=== PATIENT | female | born 1990 | race Caucasian/White ===

== ENCOUNTER 2022-03-05 16:07 | Outpatient (CLI) | payer OTHER, SELFPAY ==
[2022-03-05 17:11] LABS: Basophils Percent Auto 0.3 % (0.2-1.2); Eosinophils Absolute Auto 0.1 K/mm3 (0-0.3); Eosinophils Percent Auto 0.6 % (0-4.4); Hematocrit 37.1 % (37.0-47.0); Hemoglobin 12.6 g/dL (12.0-15.0); Immature Granulocyte Absolute 0.05 K/mm3 (0.00-0.031); Immature Granulocyte Percent A 0.6 % (0-0.5); Lymphocytes Percent Auto 19.4 % (18.3-44.2); Mean Corpuscular Hemoglobin 31.7 pg (26-34); Mean Corpuscular Volume 93.5 fl (80-100); Mean Platelet Volume 12.8 fl (7.4-10.4); Monocytes Absolute Auto 1.1 K/mm3 (0.1-0.6); Monocytes Percent Auto 12.2 % (2.6-8.5); Neutrophils Absolute Auto 5.9 K/mm3 (1.3-6.7); Neutrophils Percent Auto 66.9 % (45.5-73.1); Platelet Count Result 101 k/mm3 (150-375); Red Blood Count 3.97 M/mm3 (4.2-5.4); Red Cell Distribution Width 12.7 % (11.5-14.5); White Blood Count 8.8 K/mm3 (4.5-10.0)
[2022-03-05 17:22] LABS: Alanine Aminotransferase 21 U/L (6-35); Albumin Level 3.9 g/dL (3.5-5.1); Alkaline Phosphatase 114 U/L (38-126); Anion Gap 7 mmol/L (8-16); Aspartate Amino Transferase 31 U/L (14-36); Bilirubin,Total 0.4 mg/dL (0.2-1.3); Blood Urea Nitrogen 5 mg/dL (7-17); Calcium 8.6 mg/dL (8.4-10.2); Carbon Dioxide 21 mmol/L (22-30); Chloride 104 mmol/L (98-107); Estimated Glomerular Filt Rate > 60; Glucose 81 mg/dL (65-110); Lactate Dehydrogenase 365 U/L (313-618); Sodium 132 mmol/L (137-145); Uric Acid 2.5 mg/dL (2.5-7.5)
[2022-03-05 17:29] LABS: Creatinine Urine 30.7 mg/dL; Total Protein Urine Random 9 mg/dL
== END 2022-03-05 16:08 | disposition home or self-care (01) ==
LOC: ANHLAB 16:09
PROVIDERS: PCP Emergency Medicine; Visit Provider Obstetrics & Gynecology
DX: D69.6 Thrombocytopenia, unspecified (principal); O99.119 Other diseases of the blood and blood-forming organs and certain disorders involving the immune mechanism complicating pregnancy, unspecified trimester; Z3A.00 Weeks of gestation of pregnancy not specified
CPT/HCPCS: 36415; 80053; 81050; 82570; 83615; 84156; 84550; 85025

== ENCOUNTER 2022-03-09 18:02 | Outpatient (NON) | payer OTHER, SELFPAY ==
[2022-03-09 18:02] VITALS: BMI 27.6
[2022-03-09 19:12] LABS: Collection Time Urine 24 HOURS
[2022-03-09 19:15] LABS: Patient Weight 136 Lbs
[2022-03-09 19:16] LABS: Total Volume 24 Hour Urine 2600 ml
[2022-03-09 19:17] LABS: Total Volume 24 Hour Urine 2600 ml
[2022-03-09 19:31] LABS: Total Protein Urine 24 Hr 182 mg/24hr (28-141); Total Protein Urine Random 7 mg/dL
[2022-03-09 19:32] LABS: Creatinine Urine 48.3 mg/dL
[2022-03-09 19:41] LABS: Creatinine Clearance Urine 193.4 ml/min (75-125); Serum Creat 0.5
== END 2022-03-09 18:03 | disposition home or self-care (01) ==
LOC: ANHOBOP 18:12
PROVIDERS: PCP Emergency Medicine; Visit Provider Obstetrics & Gynecology
DX: Z34.90 Encounter for supervision of normal pregnancy, unspecified, unspecified trimester (principal); Z3A.00 Weeks of gestation of pregnancy not specified
CPT/HCPCS: 81050; 82575; 84156

== ENCOUNTER 2022-03-12 16:26 | Outpatient (RCR) | payer OTHER, SELFPAY ==
--- NOTE | ~2022-03-12 | US_ITS ---
EXAMINATION: US OB follow up w BPP, US OB limited DATE: 03/12/2022 17:23 INDICATION: Low platelets. Evaluate growth and amniotic fluid index. TECHNIQUE: Real-time ultrasound of the pelvis was performed. The interpreting radiologist was not pre sent for the study. COMPARISON: Ultrasound dated 11/03/2021. FINDINGS: There is a single living fetus in vertex presentation. The placenta is posterior. cardiac acti vity and movement are noted. heart rate is 131 beats per minute (bpm). The amniotic fluid index is 8.6 cm, which is normal. Normal range for gestational age is 7.5-24.4 cm. The following biometric data were obtained: BPD: 92 cm corresponds to gestational age 37 weeks 3 day(s). Head circumference: 331 cm corresponds to gestational age 37 weeks 5 day(s). Abdominal circumference: 326 cm corresponds to gestational age 36 weeks 3 day(s). Femur length: 70 cm corresponds to gestational age 36 weeks 0 day(s). Head circumference to abdominal circumference ratio: 1.02 Estimated weight: 2986 g plus or minus 447 g, 29.3% by Hadlock method. Biophysical profile performed by the technologist: breathing (30 sec sustained breathing in 30 minutes): 2 out of 2 movement (3 gross body movements in 30 minutes: 2 out of 2 tone (one episode of smgyeju-nwumkgsyy-nhifcvc limb movement): 2 out of 2 Amniotic fluid pocket (2 cm): 2 out of 2 Total score: 8 out of 8 IMPRESSION: 1. Single living fetus in vertex presentation with heart rate of 131 bpm. 2. DIONNE is lower normal measuring 8.7 cm.. 3. Biophysical profile 8 out of 8. 4. Estimated gestational age by initial ultrasound is 03/24/2022, corresponding to a gestational age of 38 weeks 2 days. Appropriate interval growth. Reviewed, dictated and finalized at location A. IMPRESSION: 1. Single living fetus in vertex presentation with heart rate of 131 bpm. 2. DIONNE is lower normal measuring 8.7 cm.. 3. Biophysical profile 8 out of 8. 4. Estimated gestational age by initial ultrasound is 03/24/2022, corresponding to a gestational age of 38 weeks 2 days. Appropriate interval growth.
[2022-03-12 16:45] LABS: Hematocrit 37.2 % (37.0-47.0); Hemoglobin 12.6 g/dL (12.0-15.0); Mean Corpuscular HGB Conc 33.9 g/dl (32-36); Mean Corpuscular Hemoglobin 32.1 pg (26-34); Mean Corpuscular Volume 94.7 fl (80-100); Mean Platelet Volume 12.5 fl (7.4-10.4); Platelet Count Result 91 k/mm3 (150-375); Red Blood Count 3.93 M/mm3 (4.2-5.4); Red Cell Distribution Width 12.8 % (11.5-14.5); White Blood Count 8.3 K/mm3 (4.5-10.0)
--- NOTE | 2022-03-12 17:52 | PC.NURSE ---
Discussed US and lab results with Dr. Perry. Patient may be discharged home.
== END 2022-04-25 09:35 | disposition home or self-care (01) ==
LOC: ANHOBOP 16:26
PROVIDERS: PCP Emergency Medicine; Visit Provider Obstetrics & Gynecology
DX: O99.119 Other diseases of the blood and blood-forming organs and certain disorders involving the immune mechanism complicating pregnancy, unspecified trimester (principal); D69.6 Thrombocytopenia, unspecified; Z3A.00 Weeks of gestation of pregnancy not specified
CPT/HCPCS: 36415; 76815; 76816; 76819; 85027

== ENCOUNTER 2022-03-16 07:02 | Inpatient (IN) | payer OTHER, SELFPAY ==
[2022-03-16] VITALS (104 sets, daily range): BP systolic 72–114; BP diastolic 45–74; PULSE 48–97; TEMP 36.3–37.2; O2SAT 96–100; BMI 28.0
--- NOTE | 2022-03-16 07:50 | LDADM ---
This patient, Darlene Najera, was admitted to Labor/Delivery/Recovery 107 on 03/16/22 at 07:02. Plans for labor, pain management and were discussed with patient. Patient/family oriented to hospital policies and general routines including ID bracelet, bed and alarms, visiting hours, pain management, procedures, bathroom and other care routines, personal items, smoking policy, room service/diet and guest tray routines, infant security routines, and visiting hours. Patient/Family are encouraged to report perceived risks to care and to ask questions if they do not understand what they are told or what they should do. See OBIX for further documentation.
[2022-03-16] MEDS: miSOPROStol 25 MCG TABLET VAGINAL (08:27)
[2022-03-16] MEDS: AMPICILLIN 2 GM/NS 100 ML 2 GM/100 ML BAG IVPB (08:28)
[2022-03-16] MEDS: LACTATED RINGERS 1,000 ML 125 ML IV CONT ×3 (08:28→20:58)
[2022-03-16 08:36] LABS: Basophils Percent Auto 0.3 % (0.2-1.2); Eosinophils Percent Auto 0.4 % (0-4.4); Hematocrit 36.4 % (37.0-47.0); Hemoglobin 12.6 g/dL (12.0-15.0); Immature Granulocyte Absolute 0.03 K/mm3 (0.00-0.031); Immature Granulocyte Percent A 0.4 % (0-0.5); Lymphocytes Absolute Auto 1.25 K/mm3 (0.9-3.2); Lymphocytes Percent Auto 17.7 % (18.3-44.2); Mean Corpuscular HGB Conc 34.6 g/dl (32-36); Mean Corpuscular Hemoglobin 32.3 pg (26-34); Mean Corpuscular Volume 93.3 fl (80-100); Mean Platelet Volume 12.7 fl (7.4-10.4); Monocytes Absolute Auto 0.8 K/mm3 (0.1-0.6); Monocytes Percent Auto 10.9 % (2.6-8.5); Neutrophils Percent Auto 70.3 % (45.5-73.1); Platelet Count Result 86 k/mm3 (150-375); Red Cell Distribution Width 12.8 % (11.5-14.5); White Blood Count 7.1 K/mm3 (4.5-10.0)
--- NOTE | 2022-03-16 08:45 | P.HP_ITS ---
H&P: HPI History of Present Illness Date/Time: 03/16/22 08:24 Chief Complaint: induction of labor Narrative: Darlene is a 32yo @ 38.3wks (ANA MARIA 03/[birth year]) who presents for induction of labor. She has had regular care. She has had thrombocytopenia since her third trimester labs; stayed around 100k, but has dropped as low as 85k, most recently 91k. No symptoms of PEC and 24 hour urine was negative. She has also been measuring small, but EFW was 20%ile. She feels good movement. Irregular cramping. No VB or LOF Her has been complicated by: 1. Gestational thrombocytopenia--? (214k in 1st tri) 133k-- 108 -- 102 -- 85 -- 101-- 91 2. GBS positive Review of Systems Review of Systems: All systems reviewed & are unremarkable except as noted in HPI and below (HPI) [facility] Family History Family History Other No pertinent family history Social History Social History Smoking status: Never smoker Substance use: never Spiritual care concerns: No Meds Home Medications and Allergies Home Medications Medication Instructions Recorded Confirmed Type vitamins-iron fumarate 65 1 tablet PO DAILY 02/24/22 03/16/22 History mg iron-folic acid 1 mg tablet Allergies Allergy/AdvReac Type Severity Reaction Status Date / Time No Known Allergies Allergy Verified 03/04/22 17:07 Vital Signs Vital Signs - 24 hr 03/16/22 07:46 Oxygen Delivery Room Air Exam Const: General: cooperative, healthy appearing, comfortable and no acute dist ress Resp: Effort & Inspection: normal respiratory effort Cardio: Rate: regular rate GI: GI Palp: Yes Soft to palpation and No Tenderness to palpation present (GI) : Other: FHT's: 130's/ mod uzma/ + accels/ no decels - cat 1 TOCO:irritability Cervix: 75/-3 Membranes: intact Psych: Appearance: grossly normal Affect: normal affect Attitude: cooperative Assessment and Plan Assessment and plan (1) Thrombocytopenia affecting , antepartum: Code(s): O99.119 - Other diseases of the blood and blood-forming organs and certain disorders involving the immune mechanism complicating , unspecified trimester; D69.6 - Thrombocytopenia, unspecified Status: Acute (2) Small for gestational age fetus: Status: Acute (3) Positive GBS test: Code(s): B95.1 - Streptococcus, group B, as the cause of diseases classified elsewhere Status: Acute Plan - Admit to L&D for IOL - Will do misoprostol 25mcg q4h if not tanya too frequently - Will plan for AROM when more dilated and will switch to pitocin - Continuous monitoring; currently reassuring - Anesthesia consult for epidural early due to thrombocytopenia - GBS positive: ampicillin for PPX
--- NOTE | 2022-03-16 08:46 | WPDHPUPDATE1 ---
History and Physical Update Update Date/Time: 03/16/22 08:46 History and Physical has been reviewed, including an updated exam of the patient. There are NO changes in the patient's condition. Risks, benefits, and alternatives have been discussed and questions answered. Patient agrees to proceed with procedure.
[2022-03-16 09:24] LABS: Alanine Aminotransferase 19 U/L (6-35); Albumin Level 3.7 g/dL (3.5-5.1); Alkaline Phosphatase 142 U/L (38-126); Anion Gap 8 mmol/L (8-16); Aspartate Amino Transferase 39 U/L (14-36); Bilirubin,Total 0.5 mg/dL (0.2-1.3); Blood Urea Nitrogen 3 mg/dL (7-17); Calcium 8.5 mg/dL (8.4-10.2); Carbon Dioxide 20 mmol/L (22-30); Chloride 107 mmol/L (98-107); Estimated Glomerular Filt Rate > 60; Glucose 77 mg/dL (65-110); Potassium 3.9 mmol/L (3.4-5.0); Sodium 135 mmol/L (137-145)
[2022-03-16 11:53] LABS: Uric Acid 3.2 mg/dL (2.5-7.5)
[2022-03-16 12:36] LABS: Mean Platelet Volume 12.7 fl (7.4-10.4); Platelet Count Result 92 k/mm3 (150-375)
[2022-03-16 13:43] LABS: Prothrombin Time 12.9 Seconds (11.1-14.7)
[2022-03-16 13:44] LABS: Partial Thromboplastin Time 26.2 SECONDS (22.3-36.8)
[2022-03-16] MEDS: AMPICILLIN 1 GM/NS 50 ML 1 GM/50 ML BAG IVPB ×3 (13:45→21:48)
[2022-03-16] MEDS: OXYTOCIN 30 UNITS/NS 500 ML 30 UNITS/500 ML BAG 6 UNITS IV CONT (13:45)
--- NOTE | 2022-03-16 16:13 | PM.OBPNLAB ---
Pain Control Date/time seen: 03/16/22 16:13 Pain control: tolerating well Pelvic Exam Dilation (cm): 3 Effacement (%): 75 station: -1 Amniotic membrane status: Ruptured (AROM, clear 1610) Contractions Monitor mode: External (internal placed on this exam) Contraction frequency: 2 (-3) Status status: Category l Assessment and Plan Pitocin rate (mU/min): 16 Assessment: induction ongoing Plan: continuous present management Comments: - anesthesia consulted regarding low platelets-- 86k; repeat was 92 with normal coags, she will try without epidural - continue amp
[2022-03-16] MEDS: fentaNYL CITRATE INJ (*CRX) 100 MCG/2 ML VIAL 50 MCG IV PUSH (17:47)
[2022-03-16] MEDS: ONDANSETRON INJ 4 MG/2 ML VIAL IV PUSH (18:49)
[2022-03-17] VITALS (195 sets, daily range): BP systolic 59–116; BP diastolic 36–74; PULSE 25–114; RESP 16–18; TEMP 36.4–37.5; O2SAT 84–100
[2022-03-17] MEDS: AMPICILLIN 1 GM/NS 50 ML 1 GM/50 ML BAG IVPB ×2 (02:12→05:40)
[2022-03-17] MEDS: LACTATED RINGERS 1,000 ML 125 ML IV CONT (03:52)
[2022-03-17 08:38] LABS: Rapid Plasma Reagin Non-Reactive (NonReactive)
[2022-03-17] MEDS: miSOPROStol 200 MCG TABLET 800 MCG RECTAL (10:22)
[2022-03-17] MEDS: OXYTOCIN 30 UNITS/NS 500 ML 30 UNITS/500 ML BAG 999 UNITS IV CONT (10:22)
--- NOTE | 2022-03-17 10:46 | PM.OBPRVD ---
OB - Delivery Note Procedure Delivery date: 03/17/22 Events: Other (thrombocytopenia, low fluid, low EFW) Induction method: Per Misoprostol Protocol Delivery augmentation: Rupture of Membranes and Pitocin Delivery monitor: Internal FHT Route of delivery: Laceration Description: Perineal - 2nd Degree Delivery repair: vicryl Specimen: No Quantitative Blood Loss (ml): 450 Anesthesia type: Epidural Disposition: Floor Baby Date of : 03/17/22 Time of : 10:18 Weeks of gestation at delivery: 38 (.5) gender: Male Weight (pounds): 5 Weight (ounces): 15 presentation: vertex position: Right Occiput Anterior Placenta delivery description: Expressed Cord Vessel Description: 3 Vessels, Nuchal Cord, Loose, Reduced, Clamped/Cut and Delayed Cord Clamping score one minute: 6 score five minutes: 9 Narrative: Darlene progressed to complete dilation and pushed for approximately 2-1/2 hours. She delivered the head over intact perineum. Nuchal cord was noted and reduced. She easily delivered the 's shoulders and body without complication. The infant was immediately placed skin to skin and stimulated and suctioned by the pediatric nurse. Delayed cord clamping was performed. The umbilical cord was then clamped and cut. A segment of the cord was collected for cord gases. The remaining cord blood was collected for typing. With Pitocin running and gentle downward traction on the cord, the placenta delivered without complications. Brisk bleeding due to atony was noted and bimanual massage was performed. The uterine tone was noted to be firm after a couple minutes of bimanual massage. She was examined and a second-degree perineal laceration was noted. The perineal laceration was repaired in normal fashion using 2-0 Vicryl in the normal fashion. Bimanual massage was once again performed and a small amount of clots were removed from the uterus, but good tone was noted after massage. The bladder was drained with the straight catheter. Misoprostol was then placed rectally. Good tone continued. Sponge, lap, instrument, and needle counts were correct at the end the procedure. Mom and baby were left bonding in the birthing suite in stable condition.
[2022-03-17] MEDS: OXYTOCIN 30 UNITS/NS 500 ML 30 UNITS/500 ML BAG 125 UNITS IV CONT (11:01)
[2022-03-17] MEDS: IBUPROFEN 600 MG TABLET PO ×2 (11:39→19:24)
[2022-03-17 12:19] LABS: Basophils Percent Auto 0.2 % (0.2-1.2); Eosinophils Absolute Auto 0.9 K/mm3 (0-0.3); Eosinophils Percent Auto 4.9 % (0-4.4); Hematocrit 34.8 % (37.0-47.0); Hemoglobin 11.9 g/dL (12.0-15.0); Immature Granulocyte Absolute 0.17 K/mm3 (0.00-0.031); Immature Granulocyte Percent A 0.9 % (0-0.5); Immature Platelet Fraction Pct 21.6 % (0.9-11.2); Lymphocytes Absolute Auto 0.68 K/mm3 (0.9-3.2); Lymphocytes Percent Auto 3.5 % (18.3-44.2); Mean Corpuscular HGB Conc 34.2 g/dl (32-36); Mean Corpuscular Hemoglobin 31.9 pg (26-34); Mean Corpuscular Volume 93.3 fl (80-100); Mean Platelet Volume 13.2 fl (7.4-10.4); Monocytes Absolute Auto 1.8 K/mm3 (0.1-0.6); Monocytes Percent Auto 9.5 % (2.6-8.5); Neutrophils Absolute Auto 15.7 K/mm3 (1.3-6.7); Platelet Count Result 100 k/mm3 (150-375); Red Blood Count 3.73 M/mm3 (4.2-5.4); Red Cell Distribution Width 12.6 % (11.5-14.5); White Blood Count 19.3 K/mm3 (4.5-10.0)
--- NOTE | 2022-03-17 13:23 | PC.NURSE ---
Patient transferred to post room #292 via wheelchair 1323. Support person present. Oriented to unit, room, information board, rooming in, admission packet and security measures. Patient verbalizes understanding.
--- NOTE | 2022-03-17 13:34 | PC.NURSE ---
[id number] Introductions were made, then consulted with patient to assess needs related to . Mother is holding her cradle with a blanket loosely wrapped. With education and encouraged understanding of the benefits of skin to skin (unwrapping infant and placing vertically on her chest), responsive feeding and how to watch for early feeding signs, frequency of feeding on demand about every 8-12 times in 24 hours (every 2-3 hours), and milk production. Nipple care reviewed with optimal latch and good positioning. Education given to mother regarding hand expression with the benefits of stimulating milk production and finger feeding colostrum to infant. Reviewed good handwashing when or touching the breast/nipples to prevent infection. Discussed risks and benefits of using tools for such as a nipple shield, latch assist, and pumping. Mother voiced understanding of responsive feedings, stimulating with skin to skin, hand expressed colostrum, touch, talking to infant to encourage if it has been 2 -3 hours since the start of the last , to call if does not latch or there is discomfort with . Reported to the primary nursery RN.
[2022-03-17] MEDS: ACETAMINOPHEN 325 MG TABLET 650 MG PO ×2 (16:09→21:49)
[2022-03-17] MEDS: DOCUSATE SODIUM 100 MG CAPSULE PO (16:10)
[2022-03-17] MEDS: BENZOCAINE 20% AER SPR (*SP) 56 GM CAN 1 SPRAY TOPICAL (16:13)
[2022-03-17] MEDS: DIBUCAINE 1% OINTMENT 30 GM TUBE 1 APPLIC TOPICAL (16:13)
--- NOTE | 2022-03-17 18:38 | PC.NURSE ---
Per ZIGZAG MACHINE OPERATOR Ladi we can remove this patient's epidural catheter. This patient's epidural catheter removed at 1930. Catheter tip intact, no bleeding noted, and bandaid applied to site.
[2022-03-18 03:30] VITALS: BP 94/54; PULSE 58; RESP 16; TEMP 36.7; O2SAT 98
[2022-03-18] MEDS: ACETAMINOPHEN 325 MG TABLET 650 MG PO ×2 (03:35→20:50)
[2022-03-18] MEDS: IBUPROFEN 600 MG TABLET PO ×4 (03:35→22:10)
[2022-03-18 04:56] LABS: Hematocrit 31.2 % (37.0-47.0); Hemoglobin 10.6 g/dL (12.0-15.0)
--- NOTE | 2022-03-18 07:19 | PM.OBPNVD ---
OB - PN: Subj Subjective Date/time seen: 03/18/22 07:19 Narrative: PPD#1 Darlene reports doing well today. 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 Her pain is controlled. She is tolerating regular diet, voiding, passing gas, and ambulating without issues. She is breast feeding. She would like her son circumcised. OB - PN: Obj Data Labs CBC & Chem 7: 03/18/22 03:42 03/16/22 08:22 Labs: Laboratory Results - last 24 hr 03/16/22 03/17/22 03/18/22 08:22 12:08 03:42 WBC 19.3 H RBC 3.73 L Hgb 11.9 L 10.6 L Hct 34.8 L 31.2 L MCV 93.3 MCH 31.9 MCHC 34.2 RDW 12.6 Plt Count 100 L MPV 13.2 H Immature Gran % (Auto) 0.9 H Neut % (Auto) 81.0 H Lymph % (Auto) 3.5 L [place] % (Auto) 9.5 H Eos % (Auto) 4.9 H Baso % (Auto) 0.2 Lymph # (Auto) 0.68 L [place] # (Auto) 1.8 H Eos # (Auto) 0.9 H Baso # (Auto) 0.0 Abs Immat Gran (auto) 0.17 H Absolute Neuts (auto) 15.7 H Absolute Nucleated RBC 0.0 Nucleated RBC % 0.0 % Immature Plt Fraction 21.6 H RPR Non-reactive OB - PN A/P Assessment and Plan (1) Normal vaginal delivery of first : Code(s): O80 - Encounter for full-term uncomplicated delivery Status: Acute (2) Thrombocytopenia affecting , antepartum: Code(s): O99.119 - Other diseases of the blood and blood-forming organs and certain disorders involving the immune mechanism complicating , unspecified trimester; D69.6 - Thrombocytopenia, unspecified Status: Acute Plan day: 1 Plan: routine care Comments: - discharge home tomorrow - Pelvic rest; take meds as prescribed - ER return precautions: fever, n/v/abd pain, bleeding, HTN Time Spent With Patient Time: Total time spent is greater than 50% in coordination of care (as documented) at patient's floor/unit and/or counseling patient: Review of Systems Constitutional: Constitutional: Denies chills, Denies fever(s) and Denies headache(s) Eyes: Eyes: Denies change in vision ENT: Denies dizziness and Denies headache(s) Cardiovascular: Cardiovascular: Denies chest pain, Denies palpitations and Denies dyspnea Respiratory: Respiratory: Denies cough and Denies dyspnea Gastrointestinal: Gastrointestinal: Denies nausea and Denies vomiting Neurologic: Denies dizziness and Denies headache(s) Endocrine: Endocrine: Denies palpitations Exam Const: General: cooperative, comfortable and no acute distress Orientation/consciousness: patient oriented x3 Resp: Effort & Inspection: normal respiratory effort Auscultation: clear to auscultation bilaterally Cardio: Rate: regular rate GI: Inspection: non-distended GI Palp: No abdominal tenderness and Yes Soft to palpation Auscultation: normal bowel sounds : Other: fundus firm Skin: General skin exam: normal color Neuro: General: patient oriented x3 Extrem: General: normal to inspection Psych: Appearance: grossly normal Affect: normal affect Attitude: cooperative
[2022-03-18 08:00] VITALS: BP 94/59; PULSE 57; RESP 16; TEMP 36.6; O2SAT 99
[2022-03-18] MEDS: DOCUSATE SODIUM 100 MG CAPSULE PO ×2 (08:31→16:08)
[2022-03-18] MEDS: MULTIVIT/MIN/PREN/FOL AC/IRON TABLET 1 TAB PO (08:31)
--- NOTE | 2022-03-18 08:55 | WPDANLDPN2 ---
Anes-Prog Note L&D Date/Time: 03/18/22 08:55 Comfortable throughout: labor and delivery Neuraxial method: epidural Epidural/Spinal procedure site: clean & non-tender Neuro status: Neuro function grossly intact. Cardiovascular status: normal Respiratory status: normal Airway patency: baseline Mental status: baseline Post-Op hydration status: normal Vital Signs: Last Vital Signs Temp 36.7 C 03/18/22 03:30 Pulse 58 L 03/18/22 03:30 Resp 16 03/18/22 03:30 BP 94/54 L 03/18/22 03:30 Pulse Ox 98 03/18/22 03:30 O2 Del Method Room Air 03/17/22 19:30 Pain score (VAS): 10/27 I/O: Intake & Output 03/17/22 03/18/22 03/18/22 23:59 07:59 15:59 Intake Total 300 Balance 300 Post-procedural complaints: none Patient feedback: Patient satisfied with anesthetic care.
[2022-03-18 20:50] VITALS: BP 100/63; PULSE 56; RESP 16; TEMP 36.7; O2SAT 99
[2022-03-19] MEDS: ACETAMINOPHEN 325 MG TABLET 650 MG PO (02:57)
[2022-03-19] MEDS: IBUPROFEN 600 MG TABLET PO ×2 (05:07→10:44)
[2022-03-19 05:21] LABS: Basophils Percent Auto 0.6 % (0.2-1.2); Eosinophils Absolute Auto 0.1 K/mm3 (0-0.3); Eosinophils Percent Auto 1.5 % (0-4.4); Hematocrit 29.9 % (37.0-47.0); Hemoglobin 10.3 g/dL (12.0-15.0); Immature Granulocyte Absolute 0.03 K/mm3 (0.00-0.031); Immature Granulocyte Percent A 0.4 % (0-0.5); Lymphocytes Absolute Auto 1.77 K/mm3 (0.9-3.2); Lymphocytes Percent Auto 24.4 % (18.3-44.2); Mean Corpuscular HGB Conc 34.4 g/dl (32-36); Mean Corpuscular Hemoglobin 31.8 pg (26-34); Mean Corpuscular Volume 92.3 fl (80-100); Mean Platelet Volume 12.8 fl (7.4-10.4); Monocytes Absolute Auto 0.9 K/mm3 (0.1-0.6); Monocytes Percent Auto 12.7 % (2.6-8.5); Neutrophils Absolute Auto 4.4 K/mm3 (1.3-6.7); Neutrophils Percent Auto 60.4 % (45.5-73.1); Platelet Count Result 108 k/mm3 (150-375); Red Blood Count 3.24 M/mm3 (4.2-5.4); Red Cell Distribution Width 12.9 % (11.5-14.5); White Blood Count 7.3 K/mm3 (4.5-10.0)
[2022-03-19 08:00] VITALS: BP 117/69; PULSE 78; RESP 18; TEMP 36.8
--- NOTE | 2022-03-19 08:00 | PC.NURSE ---
Patient viewed the discharge video Mother & Baby Care, The First Two Weeks . Patient was given the opportunity and encouraged to ask questions. Patient verbalized understanding of information shared and has been given the mother/baby guide for home reference.
[2022-03-19] MEDS: DIBUCAINE 1% OINTMENT 30 GM TUBE 1 APPLIC TOPICAL (10:44)
[2022-03-19] MEDS: BENZOCAINE 20% AER SPR (*SP) 56 GM CAN 1 SPRAY TOPICAL (10:44)
[2022-03-19] MEDS: MULTIVIT/MIN/PREN/FOL AC/IRON TABLET 1 TAB PO (10:44)
[2022-03-19] MEDS: WITCH HAZEL 40 PADS 1 PAD TOPICAL (10:44)
--- NOTE | 2022-03-19 11:04 | PC.NURSE ---
Self care and infant care discharge instructions given including follow up visit date and time. Mother verbalized understanding. No questions or concerns voiced. FOB at side.
--- NOTE | 2022-03-20 08:30 | PM.OBDSVD ---
DS: Admitting Diagnosis Discharge Date 03/19/22 Admitting Diagnosis SGA thormbocytopenia DS: Discharge Diagnosis Discharge Diagnosis (1) Normal vaginal delivery of first : Code(s): O80 - Encounter for full-term uncomplicated delivery Status: Acute OB - DS: Summary OB Procedures : NST, PIH Mgmt and Ultrasound OB Procedures Intrapartum: Spontaneous Vag Delivery OB Procedures: : None Peripartum Data Delivery Method: Natural Vaginal Laceration Description: Perineal - 2nd Degree complications: none 1: Gender: Male Disposition of : home Status at Discharge Functional status at discharge: independent ambulation Overall status at discharge: patient is back to baseline Time Spent with Patient Time attestation: Total time spent providing and/or coordinating discharge services: Time spent: Less than 30 minutes Exam Const: General: cooperative, comfortable and no acute distress Orientation/consciousness: patient oriented x3 Resp: Effort & Inspection: normal respiratory effort Auscultation: clear to auscultation bilaterally Cardio: Rate: regular rate GI: Inspection: non-distended GI Palp: No abdominal tenderness and Yes Soft to palpation Auscultation: normal bowel sounds : Other: fundus firm Skin: General skin exam: normal color Neuro: General: patient oriented x3 Extrem: General: normal to inspection Psych: Appearance: grossly normal Affect: normal affect Attitude: cooperative DS: Data Data Completed and Pending Pending studies at discharge: Pending at discharge 03/17/22 10:22 Surgical [PTH] Routine Discharge Plan Discharge Attending physician on discharge: Susanna Perry Consulting providers: January Olvera Discharging Clinician: Susanna Perry Anticipated Discharge Date/Time: 03/19/22 10:00 Patient Disposition: Home, Self-Care Activity: may shower and pelvic rest Diet: as tolerated and regular Discharge Instructions: Education: Mom and Baby Guide Given to: Mother Follow-Up: Call your delivering provider's office for an appointment to be seen in: 4 Week Mom and baby [facility] for the follow-up appointment. Appointment Date/Time: Sunday, March 20, 2022 at 11:00 am What to expect at your follow-up visit: Blood Pressure Check Physical Assessment Call [phone] if you are unable to keep your appointment time. BREAST CARE: * Wear a snug supportive bra. * For engorgement discomfort: Breast Feeding: * Apply warm moist washcloths * Express milk as needed to relieve engorgement * Wear loose clothing Bottle Feeding: * May apply ice packs * For sore nipples: * Identify correct latch-on * Apply warm moist washcloths before and after nursing * Air dry nipples after nursing * May apply Lansinoh cream to nipples EPISIOTOMY/PERINEAL CARE * Until bleeding stops, use your sally bottle after urinating * Change your pad frequently throughout the day * You may take sitz baths several times a day (fill your bathtub with warm water and soak for 20 minutes.) Do NOT bathe in the water * No tub baths until seen by your physician - You may shower ACTIVITY: * Rest as much as possible. * Do not exercise or lift anything heavier than your baby (such as laundry or other children.) * Avoid stairs or driving as much as possible. * Do not put anything into the vagina. No douching, tampons, or sexual activity until seen by physician. NOTIFY PHYSICIAN IF YOU HAVE ANY QUESTIONS OR IF ANY OF THE FOLLOWING SYMPTOMS OCCUR: * If your episiotomy becomes red, swollen, or more painful than what you have experienced in the hospital. * If your vaginal bleeding becomes foul smelling. * If your vaginal bleeding becomes more heavy than a period or if your bleeding changes fro
[2022-03-20 11:49] VITALS: BP 110/60; PULSE 56; RESP 20; TEMP 36.9; O2SAT 100
== END 2022-03-19 13:40 | disposition home or self-care (01) | DRG 807 ==
LOC: ANHLDR 07:09 → ANHOB2 03-17 13:39
PROVIDERS: Anesthesiology; Admitting Provider Obstetrics & Gynecology; PCP Emergency Medicine; Visit Provider Obstetrics & Gynecology
DX: O99.12 Other diseases of the blood and blood-forming organs and certain disorders involving the immune mechanism complicating childbirth (principal); Z37.0 Single live birth; D69.6 Thrombocytopenia, unspecified; O99.824 Streptococcus B carrier state complicating childbirth; O36.5930 Maternal care for other known or suspected poor fetal growth, third trimester, not applicable or unspecified; O76 Abnormality in fetal heart rate and rhythm complicating labor and delivery; O70.1 Second degree perineal laceration during delivery; O69.81X0 Labor and delivery complicated by cord around neck, without compression, not applicable or unspecified; Z3A.38 38 weeks gestation of pregnancy
CPT/HCPCS: 36415; 80053; 84550; 85014; 85018; 85025; 85049; 85055; 85610; 85730; 86592; 86850; 86900; 86901; 88307; A9270; J0290; J2405; J2590; J2795; J3010; J7120

== ENCOUNTER 2025-08-21 16:09 | Outpatient (RCR) | payer OTHER, SELFPAY ==
[2025-07-20 17:16] VITALS: BP 95/53; PULSE 77
[2025-07-24 17:18] VITALS: BP 92/52; PULSE 83
[2025-07-27 17:15] VITALS: BP 90/55; PULSE 74
[2025-07-31 17:09] VITALS: BP 91/55; PULSE 74
[2025-08-03 16:57] VITALS: BP 101/61; PULSE 95
[2025-08-07 17:38] VITALS: BP 93/57; PULSE 75
[2025-08-10 16:17] LABS: Hematocrit 33.9 % (37.0-47.0); Hemoglobin 11.7 g/dL (12.0-15.0); Immature Granulocyte Percent A 0.3 % (0-0.5); Immature Platelet Fraction Pct 14.8 % (0.9-11.2); Lymphocytes Absolute Auto 1.33 K/mm3 (0.9-3.2); Mean Corpuscular HGB Conc 34.5 g/dl (32-36); Mean Corpuscular Hemoglobin 32.1 pg (26-34); Mean Corpuscular Volume 92.9 fl (80-100); Nucleated Red Blood Cells Absolute Auto 0.000 K/mm3 (0.0-0.012); Nucleated Red Blood Cells Perc 0.0 % (0.0-0.2); Platelet Count Result 118 k/mm3 (150-375); Red Blood Count 3.65 M/mm3 (4.2-5.4); White Blood Count 6.6 K/mm3 (4.5-10.0)
[2025-08-10 16:36] VITALS: BP 99/60; PULSE 85
[2025-08-10 16:54] LABS: Syphilis IgG/IgM Antibody Non-Reactive (Nonreactive)
[2025-08-10 17:06] LABS: HIV 1/2 Ab P24 Ag Result Negative (Negative)
[2025-08-14 16:38] VITALS: BP 93/61; PULSE 90
[2025-08-17 11:38] VITALS: BP 95/53; PULSE 65
--- NOTE | ~2025-08-21 | US_ITS ---
EXAMINATION: US OB follow up w BPP DATE: 08/17/2025 11:06 INDICATION: Small for gestational age. Third trimester. TECHNIQUE: Real-time pelvic ultrasound was performed. COMPARISON: Ultrasound 08/10/2025 FINDINGS: There is a single living fetus in vertex presentation. The placenta is anterior. heart rate is 146 beats per minute (bpm). The amniotic fluid index is 10.9 cm, which is normal. The following biometric data were obtained: Biparietal diameter (BPD): 9.3 cm; head circumference (HC): 33.9 cm; abdominal circumference (AC): 33.1 cm; femur length (FL): 6.8 cm. These measurements are concordant. Estimated weight is 3026 g +/- 454 g, which correlates with the 28th percentile when 08/30/25 is used as estimated date of delivery. As single measurements, these parameters are each equal to the following estimated gestational ages: BPD: 37 weeks 5 days. HC: 39 weeks 0 days. AC: 37 weeks 0 days. FL: 35 weeks 0 days. estimated gestational age based solely on measurements from this exam is 37 weeks 1 days +/- 2 weeks 4 days. Biophysical profile performed by the technologist: breathing (30 sec sustained breathing in 30 minutes): 2 out of 2 movement (3 gross body movements in 30 minutes): 2 out of 2 tone (one episode of aqtbzdc-kolxffrke-tpcmesw limb movement): 2 out of 2 Amniotic fluid pocket (2 cm): 2 out of 2 Total score: 8 out of 8 IMPRESSION: 1. Single living fetus in vertex presentation. 2. Estimated weight is 3026 g +/- 454 g, which correlates with the 28th percentile when 08/30/25 is used as estimated date of delivery. 3. Biophysical profile 8 out of 8. Reviewed, dictated and finalized at location A.
--- NOTE | ~2025-08-21 | US_ITS ---
US OB follow up w BPP INDICATION: EFW with growth percentile BPP, and DIONNE . COMPARISON: None. TECHNIQUE: Transabdominal limited obstetric sonogram was performed Findings: Single intrauterine measuring 36 3 days with cardiac activity of 144 bpm. DIONNE 7.39 cm. Estimated weight is 2741 g. IMPRESSION: Single intrauterine with cardiac activity of 144 bpm. Estimated weight is 2741 g. Reviewed, dictated and finalized at location S.
--- NOTE | ~2025-08-21 | US_ITS ---
EXAMINATION: US OB BPP wo non-stress DATE: 07/27/2025 17:39 INDICATION: Small for gestational age during third trimester TECHNIQUE: Real-time pelvic ultrasound was performed. The interpreting radiologist was not present for the study. COMPARISON: None. FINDINGS: There is a single living fetus in vertex presentation. The placenta is anterior. heart rate is 120 beats per minute (bpm). Amniotic fluid volume is subjectively normal with normal vertical pocket measurement of 5.5 cm. Biophysical profile performed by the technologist: breathing (30 sec sustained breathing in 30 minutes): 0 out of 2 movement (3 gross body movements in 30 minutes): 2 out of 2 tone (one episode of wqsedme-bytdfdojk-wubjmbq limb movement): 2 out of 2 Amniotic fluid pocket (2 cm): 2 out of 2 Total score: 8 out of 8 IMPRESSION: 1. Single living fetus in vertex presentation with heart rate of 120 bpm. 2. Biophysical profile 6 out of 8. Reviewed, dictated and finalized at location A.
--- NOTE | ~2025-08-21 | US_ITS ---
EXAMINATION: US OB BPP wo non-stress DATE: 08/03/2025 16:38 INDICATION: Intrauterine growth retardation during third trimester TECHNIQUE: Real-time pelvic ultrasound was performed. The interpreting radiologist was not present for the study. COMPARISON: None. FINDINGS: There is a single living fetus in vertex presentation. The placenta is anterior. heart rate is 141 beats per minute (bpm). Normal deepest amniotic fluid vertical pocket measurement of 3.9 cm. Biophysical profile performed by the technologist: breathing (30 sec sustained breathing in 30 minutes): 2 out of 2 movement (3 gross body movements in 30 minutes): 2 out of 2 tone (one episode of xndvjte-buvfwatsd-zykutsz limb movement): 2 out of 2 Amniotic fluid pocket (2 cm): 2 out of 2 Total score: 8 out of 8 IMPRESSION: 1. Single living fetus in vertex presentation with heart rate of 141 bpm. 2. Biophysical profile 8 out of 8. Reviewed, dictated and finalized at location A.
--- NOTE | ~2025-08-21 | US_ITS ---
EXAMINATION: US OB BPP wo non-stress, 07/20/2025 17:06 CDT HISTORY: SGA Comparison: None Technique: Souza-scale and color Doppler images were obtained Findings: Single live intrauterine identified in vertex presentation, heart rate 126, DIONNE 7.43. BPP 8/8 The placenta is located anteriorly and appears unremarkable. IMPRESSION: Single live intrauterine detailed above Reviewed, dictated and finalized at location P.
[2025-08-21 16:42] VITALS: BP 102/55; PULSE 82
== END 2025-08-25 10:43 | disposition other institution (70) ==
LOC: ANHOBOP 16:09
PROVIDERS: PCP Emergency Medicine; Visit Provider Obstetrics & Gynecology
DX: O36.5930 Maternal care for other known or suspected poor fetal growth, third trimester, not applicable or unspecified (principal); Z3A.34 34 weeks gestation of pregnancy
CPT/HCPCS: 36415; 59025; 76816; 76819; 85025; 85055; 86593; 86703; G0432

== ENCOUNTER 2025-08-23 05:05 | Inpatient (IN) | payer OTHER, SELFPAY ==
[2025-08-23] VITALS (132 sets, daily range): BP systolic 85–126; BP diastolic 43–82; PULSE 29–85; RESP 16; TEMP 36.7–37.4; O2SAT 82–100; BMI 28.3
[2025-08-23 05:53] LABS: Hematocrit 33.4 % (37.0-47.0); Hemoglobin 11.8 g/dL (12.0-15.0); Immature Granulocyte Percent A 0.3 % (0-0.5); Immature Platelet Fraction Pct 15.4 % (0.9-11.2); Lymphocytes Absolute Auto 1.38 K/mm3 (0.9-3.2); Mean Corpuscular HGB Conc 35.3 g/dl (32-36); Mean Corpuscular Hemoglobin 31.9 pg (26-34); Mean Corpuscular Volume 90.3 fl (80-100); Nucleated Red Blood Cells Absolute Auto 0.000 K/mm3 (0.0-0.012); Nucleated Red Blood Cells Perc 0.0 % (0.0-0.2); Red Blood Count 3.70 M/mm3 (4.2-5.4); White Blood Count 6.6 K/mm3 (4.5-10.0)
--- NOTE | 2025-08-23 05:56 | LDADM ---
This patient, Darlene Njaera, was admitted to Labor/Delivery/Recovery 107 on 08/23/25 at 05:05. Plans for labor, pain management and were discussed with patient. Patient/family oriented to hospital policies and general routines including ID bracelet, bed and alarms, visiting hours, pain management, procedures, bathroom and other care routines, personal items, smoking policy, room service/diet and guest tray routines, infant security routines, and visiting hours. Patient/Family are encouraged to report perceived risks to care and to ask questions if they do not understand what they are told or what they should do. See OBIX for further documentation.
[2025-08-23 06:33] LABS: Platelet Count Result 99 k/mm3 (150-375)
[2025-08-23 06:42] LABS: Syphilis IgG/IgM Antibody Non-Reactive (Nonreactive)
--- NOTE | 2025-08-23 07:11 | PM.IMHP ---
H&P: HPI History of Present Illness Date/Time: 08/23/25 07:11 Chief Complaint: induction Narrative: Darlene is a 35yo @ 39.0wks who presents for IOL. She was diagnosed with IUGR w/ AC @ 9%; repeat US showed normal AC. She has been undergoing routine testing, which has been reassuring. She reports good movement. Her is complicated by: - H/o gestational thrombocytopenia: 123k (06/16/25), repeat 118k-- admission 99k - IUGR; AC 9%ile --> 30%ile - GBS unknown (pending lab, but was positive last ) Review of Systems Constitutional: Constitutional: Denies chills, Denies fever(s) and Denies headache(s) Eyes: Eyes: Denies change in vision ENT: Denies headache(s) Cardiovascular: Cardiovascular: Denies chest pain and Denies dyspnea Respiratory: Respiratory: Denies dyspnea Genitourinary: Genitourinary: Denies abnormal vaginal bleeding and Denies vaginal discharge Neurologic: Denies headache(s) Psychiatric: Psychiatric: Denies anxiety and Denies depression [facility] Family History Family History Other No pertinent family history Social History Social History Smoking status: Never smoker Alcohol intake: never Substance use: never Substance use type: does not use Lack of Transportation: No Lack of Food: Never True Current Housing: I Have Housing Concerned About Future Housing: No Difficulty Paying Gas/Electric Bills: No Difficulty Paying for Meds: No Currently Unemployed: No Education: Bachelor's Degree Difficulty w/ Childcare or Family Care: No Living arrangements: with family Occupation/Education: occupation 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 Gender identity (if verbalized by the patient): Female Sexual Orientation (if Verbalized by the Patient): Straight or Heterosexual Spiritual care concerns: No Meds Home Medications and Allergies Home Medications ?Medication ?Instructions ?Recorded ?Confirmed ?Type docosahexaenoic acid 200 mg 200 mg PO HS 01/16/25 08/21/25 History capsule ( DHA) magnesium 200 mg tablet 200 mg PO DAILY 02/14/25 08/21/25 History hydrocortisone 2.5 % topical cream 1 applic RECTAL DAILY PRN 08/16/25 08/21/25 Rx with perineal applicator hemorrhoids #30 grams (Anusol-HC) Allergies Allergy/AdvReac Type Severity Reaction Status Date / Time No Known Allergies Allergy Verified 08/23/25 07:05 Vital Signs Vital Signs - 24 hr 08/23/25 05:45 08/23/25 05:46 08/23/25 05:47 Temperature 98.3 F Pulse Rate 71 60 Blood Pressure 96/60 L 94/55 L Oxygen Delivery 08/23/25 05:54 08/23/25 06:01 08/23/25 06:16 Temperature Pulse Rate 73 64 Blood Pressure 96/65 L 92/65 L Oxygen Delivery Room Air 08/23/25 06:31 08/23/25 07:01 Temperature Pulse Rate 71 64 Blood Pressure 98/59 L 93/65 L Oxygen Delivery Exam Const: General: cooperative, healthy appearing, comfortable and no acute distress Orientation/consciousness: patient oriented x3 Resp: Effort & Inspection: normal respiratory effort Cardio: Rate: regular rate GI: GI Palp: No abdominal tenderness : Other: FHT's: 130's/ mod uzma/ + accels/ no decels - cat 1 TOCO: ctxs q3min Cervix: 3/50/-2, posterior, med Membranes: intact Presentation: cephalic Skin: General skin exam: normal color Neuro: General: patient oriented x3 Extrem: General: normal to inspection Psych: Appearance: grossly normal Affect: normal affect Attitude: cooperative H&P: Results Labs Labs: Short CBC 08/23/25 Range/Units 05:43 WBC 6.6 (4.5-10.0) K/mm3 Hgb 11.8 L (12.0-15.0) g/dL Hct 33.4 L (37.0-47.0) % Plt Count 99 L (150-375) k/mm3 Assessment and Plan Assessment and plan (1) growth restriction: Status: Acute (2) Thrombocytopenia affecting , antepartum: Code(s): O99.119 - Other diseases of the blood and blood-forming organs and certain disorders involving the immune mechanism complicating , unspecified trimester; D69.6 - Thrombocytopenia, unspecified Status: Acute Plan - Admitted for induction of labor; risks and benefits discussed - Cytotec 50mcg once; then plan for low dose pitocin - Continuous monitoring - GBS unknown; will contact [facility] for culture, but will treat as positive as she was with her last - Anesthesia consult PRN pain
[2025-08-23] MEDS: LACTATED RINGERS 1,000 ML 125 ML IV CONT ×2 (07:34→12:10)
[2025-08-23] MEDS: AMPICILLIN SODIUM 2 GM in SODIUM CHLORIDE 0.9% IV 100 ML 200 ML IVPB (07:34)
[2025-08-23] MEDS: OXYTOCIN 30 UNITS/NS 500 ML 30 UNITS/500 ML BAG IV CONT (10:04)
--- NOTE | 2025-08-23 11:49 | PM.OBPNLAB ---
Pain Control Date/time seen: 08/23/25 11:49 Comments: requesting epidural Pelvic Exam Dilation (cm): 4 Effacement (%): 75 station: -2 Amniotic membrane status: Ruptured (SROM, clear 1136) Contractions Monitor mode: External Contraction frequency: 2 (-3) Status status: Category l Assessment and Plan Pitocin rate (mU/min): 6 Plan: continuous present management
[2025-08-23] MEDS: ONDANSETRON INJ 4 MG/2 ML VIAL IV PUSH (14:59)
--- OUTSIDE RECORDS SUMMARY | 2025-08-23 16:13 | XMS_ITS | Clinical Summary ---
Author Organization [facility] Address Formerly [facility] [place] [address] Care Team Providers Care School Transportation Supervisor Name Role Phone Unavailable Primary Care Provider Unavailabl e Social History Tobacco Use Types Packs/Day Years Used Date Smoking Tobacco: Never Assessed Comments Unknown Sex and Gender Information Value Date Recorded Sex Assigned at Not on file Legal Sex Female 8:09 PM CDT Gender Identity Not on file Sexual Orientation Not on file Plan of Treatment Health Maintenance Due Date Last Done Comments Cervical Cancer Screening Pa p Smear (Age 30 to 64) Every 3 Years 1992 Annual Physical 01/13/1995 Hepatitis C 01/13/2010 DTaP, Tdap and Td Vaccines ( 1 - Tdap) 01/13/2011 Hepatitis B Vaccines (1 of 3 - 19+ 3-dose series) 01/13/2011 HPV Vaccines (1 - 3-dose SCD M series) 01/13/2019 Cervical Cancer Screening Pa p with HPV Testing (Age 30 to 64) Every 5 Years 01/13/2022 Cervical Cancer Screening with HPV 01/13/2022 COVID-19 Vaccine ( - 2024-2 6 season) 2025 Influenza Adult (#1) 2025 Hepatitis A Vaccines Aged Out No long er eligible based on patient's age to complete this topic Meningococcal B Vaccine Aged Out No l onger eligible based on patient's age to complete this topic Meningococcal Vaccine Aged Out No atilio linh eligible based on patient's age to complete this topic Pneumococcal Vaccine: Pediat rics (0 to 5 Years) and At-Risk Patients (6 to 49 Years) Aged Out No longer eligible b ased on patient's age to complete this topic RSV Immunizations Under 20 Months Aged Out No longer eligible based on patient's age to complete this topic
--- OUTSIDE RECORDS SUMMARY | 2025-08-23 16:13 | XMS_ITS | Patient Health Record ---
Author Organization [facility] [employer] Address [address] [facility] [address] [place] [address] Care Team Providers Care Physician Office Clin Asst Name Role Phone Harsh Whitney Unavailable [phone] Reason For Referral No Information Medications Medication SIG (Take, Route, Fr equency, Duration) Notes Start Date End Date Status Lexapro 10 MG Tablet Oral Active Plan Of Treatment No Information
--- OUTSIDE RECORDS SUMMARY | 2025-08-23 16:13 | XMS_ITS | Clinical Summary ---
Author Organization [facility] Address [address] [place] [address] Phone Care Team Providers Care [facility] Technician Name Role Phone Serg Powell Primary Care Provider [phone] Allergies No known active allergies Medications ferrous sulfate 325 (65 FE) MG Tablet Take 325 mg by mouth daily. Active vitamin D (CHOLECALCIFEROL ) 400 UNIT Tablet Take 1,000 Units by mouth daily. 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 Gender Identity Not on file Sexual Orientation Not on file Last Filed Vital Signs Vital Sign Reading Time Taken Comments Blood Pressure 118/68 01/16/2016 3:38 PM CDT Pulse 87 01/16/2016 3:38 PM CDT Temperature 36.7 C (98 F) 01/16/2016 3:38 PM CDT Respiratory Rate 18 01/16/2016 3:38 PM CDT Oxygen Saturation 99% 01/16/2016 3:38 PM CDT Inhaled Oxygen Concentration - - Weight 56.3 kg (124 lb 3.2 oz) 01/16/2016 3:38 P M CDT Height 151.8 cm (4' 11.75) 01/16/2016 3:38 PM C DT Body Mass Index 24.46 01/16/2016 3:38 PM CDT Plan of Treatment Health Maintenance Due Date Last Done Comments Hepatitis C Virus (HCV) Screening 1992 TdaP Immunization 1992 Hepatitis B Immunization (1 of 3 - 19+ 3-dose series) 01/13/2011 Pap Smear 01/13/2013 Human Papillomavirus (HPV) Immunization (1 - 3-dose SCDM series) 01/13/2019 Cervical Cancer Screening (CCS) 01/13/2022 HPV/Cotest 01/13/2022 Influenza Immunization (#1) 2025 SARS-COV-2 Immunization ( - season) 2025 Respiratory Syncytial Virus (RSV) Immunization (Adult) (1 - 1-dose 75+ series) 01/13/2067 Meningococcal Immunization (ACWY) Aged Out No longer eligible based on patient's age to complete this topic Pneumococcal Immunization Combined Aged Out No longer eligible based on patient's age to complete this topic Rotavirus Immunization Aged Out No lo nger eligible based on patient's age to complete this topic Insurance [facility] Care Teams [facility] Techn[facility] Relationship Specialty Start Date End Date Serg Powell [address] [place] [address] PCP - General Family Medicine 12/24/15
--- OUTSIDE RECORDS SUMMARY | 2025-08-23 16:13 | XMS_ITS | Data Portability ---
Author Organization [place] - [facility], Main Office Address [address] [place] [address] Assessment No assessment recorded. Plan of Treatment Reminders Order Date Submit Date Provider Last Modified By Organization Details Last Modified Time Details Appointments Physical/ Annual Wellness 30 2025 04:30P Margarito oakes MD Not available Not available Not available Lab vitamin D, 25-hydrox y, total, serum 2024 025 [facility], [address], [place], [address], 11/07/2024 12:52:30 CBC w/ auto diff 2024 025 [facility], [address], [place], [address], 11/07/2024 12:52:28 CMP, serum or plasma 2024 025 [facility], [address], [place], [address], 11/07/2024 12:52:27 lipid panel, serum 2024 025 [facility], [address], [place], [address], 11/07/2024 12:52:24 TSH + free T4, serum 2024 025 [facility], [address], [place], [address], 11/07/2024 12:52:25 vitamin B12 + folate, serum or blood 2024 025 BERT [facility], [address], [place], [address], 11/07/2024 12:52:29 vitamin D, 25-hydrox y, total, serum 2023 024 [email or web address], [address], [place], [address], 05/03/2024 17:32:14 CMP, serum or plasma 2023 [email or web address], [address], [place], [address], 05/03/2024 17:32:14 CBC w/ auto diff 2023 024 [email or web address] [facility], [address], [place], [address], 05/03/2024 17:32:14 TSH + free T4, serum 2023 024 [email or web address], [address], [place], [address], 05/03/2024 17:32:14 lipid panel, serum 2023 024 [email or web address] [facility], [address], [place], [address], 05/03/2024 17:32:15 gamma-glu tamyl transfera se (ggt), serum 2023 024 [email or web address] [facility], [address], [place], [address], 05/03/2024 17:32:15 hepatitis panel (A+B+C), acute, serum 2023 024 [email or web address] [facility], [address], [place], [address], 05/03/2024 17:32:15 vitamin B12 + folate, serum or blood 2023 024 [email or web address] [facility], [address], [place], [address], 05/03/2024 17:32:14 Referral None recorded. Procedures None recorded. Surgeries None recorded. Imaging US, liver - Please call patient to schedule. 2024 025 [facility], [address], [place] [facility], [place], [address], 12/04/2024 15:39:24 US, liver 2023 024 BERT Not available 01/13/2024 15:15:38 Medication Orders amoxicill in 875 mg-potass ium clavulana te 125 mg tablet [email or web address] [id number], [address], [place], [place], [id number], 10/30/2024 18:30:49 Zyrtec 10 mg tablet 2023 024 [id number], [address], [place], [id number], 12/29/2023 16:05:00 Patient TargetsNo targets recorded. Patient InstructionsNo instructions recorded. Reason for Referral None Reported. Results Created Date Observation Date Name Description Value Unit Range Abnormal Flag Note LastModifiedBy Organization Detail LastModifiedTime 10/03/20 21 10/08/2021 QNATA L(R) ADVAN DEVIN number of fetuses? 1 Not Available [facility] [address] [place], [address], 10/08/2021 19:37:14 10/03/20 21 10/08/2021 QNATA L(R) ADVAN DEVIN advanced maternal age? not given Not Available [address] [place], [address], 10/08/2021 19:37:14 10/03/20 21 10/08/2021 QNATA L(R) ADVAN DEVIN abnormal matias? not given Not Available [address] [address] [place], [address], 10/08/2021 19:37:14 10/03/20 21 10/08/2021 QNATA L(R) ADVAN DEVIN abnormal US? not given Not Available [address] [place], [address], 10/08/2021 19:37:14 10/03/20 21 10/08/2021 QNATA L(R) ADVAN DEVIN personal/fam history? not given Not Available [address] [place], [address], 10/08/2021 19:37:14 10/03/20 21 10/08/2021 QNATA L(R) ADVAN DEVIN interpretati on see note This speci men showe d expec perry repre senta tion of chrom osome 21, 18, and 13 mater ial. Not Available [address] [address] [place], [address], 10/08/2021 19:37:14 10/03/20 21 10/08/2021 QNATA L(R) ADVAN DEVIN trisomy 21 (T21) negati ve Not Available [address] [place], [address], 10/08/2021 19:37:14 10/03/20 21 10/08/2021 QNATA L(R) ADVAN DEVIN trisomy 18 (T18) negati ve Not Available [address] [address] [place], [address], 10/08/2021 19:37:14 10/03/20 21 10/08/2021 QNATA L(R) ADVAN DEVIN trisomy 13 (T13) negati ve Not Available [facility] [address] [address] [place], [address], 10/08/2021 19:37:14 10/03/20 21 10/08/2021 QNATA L(R) ADVAN DEVIN Y chromosome detect ed Not Available [address] [address] [place], [address], 10/08/2021 19:37:14 10/03/20 21 10/08/2021 QNATA L(R) ADVAN DEVIN Y chr. interpretati on see note Consi stent with a male fetus . Not Available [address] [address] [place], [address], 10/08/2021 19:37:14 10/03/20 21 10/08/2021 QNATA L(R) ADVAN DEVIN sex chromosome no aneupl oidy Not Available [address] [address] [address] , [place], [address], 10/08/2021 19:37:14 10/03/20 21 10/08/2021 QNATA L(R) ADVAN DEVIN sex chromosome interp see note No appar ent abnor malit y was detec perry. See Jovani best below . Not Available [facility] [address] [address] [place], [address], 10/08/2021 19:37:14 10/03/20 21 10/08/2021 QNATA L(R) ADVAN DEVIN microdeletio n not detect ed Not Available [facility] [address] [address] [place], [address], 10/08/2021 19:37:14 10/03/20 21 10/08/2021 QNATA L(R) ADVAN DEVIN microdeletio n interp see note No appar ent abnor malit y was detec perry. See Jovani best below . Not Available [address] [place], [address], 10/08/2021 19:37:14 10/03/20 21 10/08/2021 QNATA L(R) ADVAN DEVIN gestational age(in weeks) 15 Not Available [address] [place], [address], 10/08/2021 19:37:14 10/03/20 21 10/08/2021 QNATA L(R) ADVAN DEVIN gestational age (in days) 0 Not Available [address] [place], [address], 10/08/2021 19:37:14 10/03/20 21 10/08/2021 QNATA L(R) ADVAN DEVIN fraction 22.30% Not Available [address], [address], 10/08/2021 19:37:14 10/03/20 21 10/08/2021 QNATA L(R) ADVAN DEVIN laboratory comments see note Labor atory resul ts and submi tted clini cassi infor matio n revie wed by Tanvi Johns, Ph.D. , FACMG , CGMBS . Not Available [address], [address], 10/08/2021 19:37:14 10/03/20 21 10/08/2021 QNATA L(R) ADVAN DEVIN limitations see note This test has been valid ated on women with a singl eton pregn ernestine that is >=10 weeks gesta dasia l age. As such, the accur acy of this test for speci mens drawn at less than 10 weeks gesta tion is unkno wn. In addit ion, there are limit ed data avail able for the perfo rmanc e of this test in multi ple gesta tion pregn ancie s and for the detec tion of micro delet ions. Speci mens are ayden zed for aneup loidi es invol ving chrom osome s 21, 18, 13, X, and Y, and micro delet ions of the speci fied regio ns only. The Y chrom osome is ayden zed for the deter minat ion of sex, and the sensi tivit y and speci ficit y of this ayden sis may be less than that of the autos ome ayden sis. Sex chrom osome aneup loidy ayden sis is not perfo rmed for multi ple gesta tion pregn ancie s. Aneup loidi es invol ving chrom osome s other than those speci fied above or abnor malit ies invol ving chrom osoma l regio ns other than those speci fied are not inclu ded in this testi ng. While the resul ts of this test are highl y accur ate, not all of the chrom osome abnor malit ies inter rogat ed may be detec perry due to mater nal, place ntal, or mosai cism, or other unexp hardeep d cause s. The accur acy of the test resul ts may also be affec perry by the prese nce of chrom osome abnor malit ies or copy numbe r varia tions that are mater nal in origi n, or by vanis dano twin syndr ome in a multi ple gesta tion pregn ernestine. Circu latin g cell- free DNA scree jorgito does not repla ce the preci sera of diagn osis using chori onic villu s sampl ing or amnio cente sis. It does not asses s the risk of anoma lies such as neura l tube defec ts or ventr al wall defec ts, and shoul d not be consi dered in isola tion from other clini cassi findi ngs and labor atory test resul ts. Manag ement decis ions, inclu ding pregn ernestine termi natio n, shoul d not be based solel y on the resul ts of cell- free DNA scree jorgito. A negat gina test resul t does not ensur e an unaff ected pregn ernestine. The healt hcare provi katelynn is respo nsibl e for the use of this infor avelina arian in the manag ement of his/h er mejia cardenas. Healt h care provi ders, pleas e conta ct your local [facility] coun[facility] elor or call [facility] at [phone] ([phone]) for adelina tance with inter preta tion of these resul ts. Not Available [facility] [address] [address] [place], [address], 10/08/2021 19:37:14 10/03/2010/08/2021 QNATA L(R) ADVAN DEVIN specificatio ns see note Sensi tivit y Speci ficit y T21 >99.9 % >99.9 % T18 >99.9 % >99.9 % T13 >99.9 % >99.9 % Accur acy Y >99.9 % Perfo rmanc e of the QNata l Advan devin labor atory -deve loped test (LDT) has been deter mined based on inter nal ayden tical asses sment . Not Available [facility] [address] [address] [place], [address], 10/08/2021 19:37:14 10/03/20 21 10/08/2021 QNATA L(R) ADVAN DEVIN methodology see note Circu latin g cell- free (cf) DNA was isola perry from plasm a. It was then detec perry on a massi vely paral lel seque ncing platf orm. Bioin forma tic ayden sis was perfo rmed to deter mine the repre senta tion of DNA in the speci men, espec ially mater ial from chrom osome s 21, 18, and 13. The repre senta tion of other mater ial, inclu ding the sex chrom osome s (X and Y) and selec t chrom osoma l regio ns (22q, 15q, 11q, 8q, 5p, 4p 1p), was also evalu ated and will only be repor perry as Weston dasia l Chrom osome Resul ts when an abnor malit y is detec perry. This test was devel oped and its perfo rmanc e santi cteri stics have been deter mined by [facility], [place] [employer] . It has not been clear ed or appro belkis by the U.S. Food and Drug Admin istra tion. The FDA has deter mined that such clear ance or appro barry is not neces gio. Perfo rmanc e santi cteri stics refer to the ayden tical perfo rmanc e of the test. This test is perfo rmed pursu ant to a licen se agree ment with [facility]. This test was devel oped and its ayden tical perfo rmanc e santi cteri stics have been deter mined by [facility] [place] [employer] [facility] . It has not been clear ed or appro belkis by FDA. This assay has been valid ated pursu ant to the CLIA regul ation s and is used for clini cassi purpo ses. Not Available [facility] [address] [place], [address], 10/08/2021 19:37:14 10/20/19 22 10/23/2021 MATER NAL SERUM AFP interpretati on: Scree n negat gina for open NTD. Not Available [facility] [address] [place], [address], 10/23/2021 18:36:12 10/20/19 22 10/23/2021 MATER NAL SERUM AFP risk for ontd 1 in 7 Not Available [facility] [address] [place], [address], 10/23/2021 18:36:12 10/20/19 22 10/23/2021 MATER NAL SERUM AFP AFP, serum 69.3 NG/mL Not Available [address] [address] [place], [address], 10/23/2021 18:36:12 10/20/19 22 10/23/2021 MATER NAL SERUM AFP AFP MOM 1.46 Not Available [address] [address] [place], [address], 10/23/2021 18:36:12 10/20/19 22 10/23/2021 MATER NAL SERUM AFP comments: This patie nt's ANA MARIA (reg mated date of deljoss goodwin) was used to calcu late the gesta dasia l age. Perfo rmanc e of mater nal AFP provi eldon a usefu l scree jorgito test for detec tion of open neura l tube defec ts. The singl e AFP marke r is not recom regine d for Down syndr ome and other chrom osoma l abnor malit ies scree jorgito. Much great er sensi tivit y is achie belkis with multi ple marke rs, such as AFP, hCG, uncon jugat ed estri ol, and/o r dimer ic inhib in A, as recom regine d by the [facility] . It shoul d be noted that yanique l test resul ts can never guara ntee the of a yanique l baby and that 2-3% of [facility] rns have some type of physi cassi or menta l defec t, many of which are undet ectab le throu gh any known prena marty diagn ostic techn ique. Not Available [facility] [address] [place], [address], 10/23/2021 18:36:12 10/20/19 22 10/23/2021 MATER NAL SERUM AFP comment This is a scree jorgito test, not a diagn ostic test. This risk asses sment repor t is based in part on demog raphi c data provi ded by the order ing physi chinyere. Pleas e notif y the labor atory promp tly if any data are incor rect. For adelina tance with recal culat ions, pleas e call your local [facility] . For adelina tance with inter preta tion of these resul ts, pleas e conta ct your Local [facility] fatou ic couns elor or call [phone]( [phone]). Inter preti ve Cutof fs Scree n Posit gina for Open NTD: > or = 2.50 adjus perry MOM > or = 1.90 adjus perry MOM for Insul in-de pende nt diabe tics > or = 4.00 adjus perry MOM for twins > or = 3.50 adjus perry MOM for Twins insul in-de pende nt diabe tics > or = 4.50 adjus perry MOM for tripl ets Not Available [facility] [employer] [address], [address], 10/23/2021 18:36:12 10/20/19 22 10/23/2021 MATER NAL SERUM AFP calc'd gestational age 17.4 weeks Not Available [facility] [address] [place], [address], 10/23/2021 18:36:12 10/20/19 22 10/23/2021 MATER NAL SERUM AFP maternal weight 120 lbs Not Available [facility] [address], [address], 10/23/2021 18:36:12 10/20/19 22 10/23/2021 MATER NAL SERUM AFP est'd date of delivery 2021 Not Available [facility] [address] [place], [address], 10/23/2021 18:36:12 10/20/19 22 10/23/2021 MATER NAL SERUM AFP ana maria determined by ultras ound Not Available [facility] [address], [address], 10/23/2021 18:36:12 10/20/19 22 10/23/2021 MATER NAL SERUM AFP mother's ethnic origin other Not Available [facility] [employer] [address], [address], 10/23/2021 18:36:12 10/20/19 22 10/23/2021 MATER NAL SERUM AFP number of fetuses 1 Not Available [address], [address], 10/23/2021 18:36:12 10/20/19 22 10/23/2021 MATER NAL SERUM AFP insulin depend diabetic no Not Available [address], [address], 10/23/2021 18:36:12 10/20/19 22 10/23/2021 MATER NAL SERUM AFP repeat specimen no Not Available [address], [address], 10/23/2021 18:36:12 10/20/19 22 10/23/2021 MATER NAL SERUM AFP Hx of neural tube defects no Not Available [address], [address], 10/23/2021 18:36:12 10/20/19 22 10/23/2021 MATER NAL SERUM AFP prev down synd no Not Available [address], [address], 10/23/2021 18:36:12 10/20/19 22 10/23/2021 MATER NAL SERUM AFP donor egg no Not Available [address], [address], 10/23/2021 18:36:12 10/20/19 22 10/23/2021 MATER NAL SERUM AFP donor age: egg retrieval not given Not Available [address], [address], 10/23/2021 18:36:12 01/13/20 24 01/13/2024 US, liver No observ ation record ed. [facility] [address] [facility], [place], [address], 08/15/2025 17:42:09 Result Notes None recorded. Problems Name Problem SNOMED Code Status Onset Date Resolution Date Notes Provider Name and Address Organization Details Recorded Time 84383708 Completed 202010/07/2022 Not Available [facility] 3 08:47:37 Vitamin D deficiency 56252014 Active 2023 Tariq zapata MD [address] [facility], [address] [address], [place], [address] , [employer] 4 18:06:41 Serum vitamin B12 below reference range 537858624 Active 2023 Tariq zapata MD [address] [facility], [address], [place], [address] , [employer] 4 18:06:51 Hyperlipid emia 42043748 Active 2023 Tariq zapata MD [address] [facility], [address], [place], [address] , [employer] 4 18:07:17 Liver enzymes level above reference range 355948987 Active 2023 Tariq zapata MD [address] [facility], [address], [place], [address] , [employer] 4 18:07:34 Upper respirator y infection 84237445 Active 2023 Tariq zapata MD [address] [facility], [address], [place], [address] , [employer] 4 15:50:43 Influenza 2195670 Active 2024 Claudette Cano MA [facility], [place] [facility] [employer] 5 16:22:30 Problem Notes None recorded. Procedures Surgical History Date Name Laterality Status Provider Name and Address Organization Details Recorded Time 03/20/2019 Date of Last Pap Smear completed Not Available [facility] 12/16/2022 08:43:43 Imaging Results None recorded. Procedure Notes None recorded. Medical Equipment None Reported. Allergies No known drug allergies Medications Name Sig Start Date Stop Date Status Note LastModified by Organization Details LastModified Time cetirizine 10 mg tablet TAKE 1 TABLET BY MOUTH EVERY DAY active Not Available Not Available No t Available oseltamivir 75 mg capsule Take 1 capsule twice a day by oral route for 5 days. active Not Available Not Available No t Available amoxicillin 875 mg-potassiu m clavulanate 125 mg tablet TAKE 1 TABLET BY MOUTH EVERY 12 HOURS FOR 7 DAYS 10/30 completed Not Available Not Available Not Available Seasonique 0.15 mg-30 mcg (84)/10 mcg(7) tablets,3 month dose pack Take 1 tablet every day by oral route. 07/02 completed Not Available Not Available Not Available cholecalcif paulo (vitamin D3) 1,250 mcg (50,000 unit) capsule Take 1 capsule every week by oral route. 2024 active Not Available Not Available Not Avai lable Lo Loestrin Fe 1 mg-10 mcg (24)/10 mcg (2) tablet TAKE 1 TABLET BY MOUTH EVERY DAY. START ON DAY 1 OF NEXT MENSTRUAL CYCLE 07/02 completed Not Available Not Available Not Available Aurovela Fe 1-20 (28) 1 mg-20 mcg (21)/75 mg (7) tablet TAKE 1 TABLET BY MOUTH EVERY DAY 08/18 completed Not Available Not Available Not Available Vitals Date Recorded Body height Body mass index (BMI) Body weight Body temperature Heart rate Systolic And Diastolic Provider Name and Address Organization Details Last Updated DateTime 4 149.86 cm 23.6 kg/m2 36963.3 1 g 97.6 [degF] 66 /min 100/60 mm[Hg] MICHELLE Wilson [employer] [facility] 4 18:00:19 Date Recorded Body height Body mass index (BMI) Body weight Body temperature Heart rate Systolic And Diastolic Provider Name and Address Organization Details Last Updated DateTime 5 149.86 cm 23.6 kg/m2 61164.3 1 g 97.6 [degF] 72 /min 112/68 mm[Hg] MICHELLE Wilson [place] [facility] [facility] [employer] [facility] 5 18:38:46 Date Recorded Body height Body mass index (BMI) Body weight Body temperature Heart rate Systolic And Diastolic Provider Name and Address Organization Details Last Updated DateTime 4 149.86 cm 23.2 kg/m2 76948.1 2 g 97.7 [degF] 72 /min 110/66 mm[Hg] Geneva Burch, [facility] [employer] [facility] 4 15:39:42 Date Recorded Body mass index (BMI) Body height Heart rate Body temperature Body weight Systolic And Diastolic Provider Name and Address Organization Details Last Updated DateTime 2 25 kg/m2 149.86 cm 66 /min 97.7 [degF] 75065.4 539 g 120/70 mm[Hg] Not Available [facility] 3 08:46:34 Date Recorded Body weight Systolic And Diastolic Provider Name and Address Organization Details Last Updated DateTime 10/14/2021 73276.6768 g 110/70 mm[Hg] Not Available [facility] [facility] 12/16/2022 08:46:34 Social History Question Answer Notes LastModified by Organization Details LastModified Time Tobacco Smoking Status Never Smoker Not Available [facility] 12/16/2022 08:43:37 Do You Have An Advance Directive? No [id number] Information not available 12/16/2022 What Is Your Level Of Caffeine Consumption? None Breast Feeding [id number] Information not available 12/16/2022 In The 14 Days Before Symptom Onset, Have You Had Close Contact With A Laboratory-confi rmed COVID-19 While That Case Was Ill? No [id number].030 [id number] Information not available 12/16/2022 In The 14 Days Before Symptom Onset, Have You Had Close Contact With A Person Who Is Under Investigation For COVID-19 While That Person Was Ill? No [id number].030 [id number] Information not available 12/16/2022 What Type Of Diet Are You Following? REGULAR [id number].030 [id number] Information not available 12/16/2022 What Is The Highest Grade Or Level Of School You Have Completed Or The Highest Degree You Have Received? [id number] Information not available 12/16/2022 Have There Been Any Changes To Your Family Or Social Situation? Yes Had A Baby [id number].[id number] Information not available 12/16/2022 What Is The Fluoride Status Of Your Home? Unknown MIGRATION.0301 [id number] Information not available 12/16/2022 Where Do You Live? SingleLevelHouse MIGRATION.0301 [id number] Information not available 12/16/2022 Do You Have A Medical Power Of Driver'S License Reviewing Officer? No MIGRATION.0301 [id number] Information not available 12/16/2022 What Was The Date Of Your Most Recent Tobacco Screening? 10/30/2024 Information not available 10/30/2024 Do You Have Any Pets? Yes [id number].[id number] [id number] Information not available 12/16/2022 What Is Your Relationship Status? Single MIGRATION.0301 [id number] Information not available 12/16/2022 Do You Use Your Seat Belt Or Car Seat Routinely? Yes MIGRATION.0301 [id number] Information not available 12/16/2022 Do You Have Smoke And Carbon Monoxide Detectors In Your Home? Yes MIGRATION.0301 [id number] Information not available 12/16/2022 Are You Passively Exposed To Smoke? No MIGRATION.0301 [id number] Information not available 12/16/2022 Are There Any Smokers In Your House? No MIGRATION.0301 [id number] Information not available 12/16/2022 Has Tobacco Cessation Counseling Been Provided? No N/a Information not available 10/27/2023 Have You Recently Traveled Abroad? No MIGRATION.0301 [id number] Information not available 12/16/2022 Do You Have Any Dietary Restrictions? No MIGRATION.0301 [id number] Information not available 12/16/2022 Sex: Female Functional Status Question Answer Note LastModified by Organizat ion Details LastModified Time Do you or have you ever used any other forms of tobacco or nicotine? No Information not available 10/27/2023 What is your level of alcohol consumption? None [id number] Information not available 12/16/2022 Are you currently employed? Yes Information not available 10/27/2023 What is your occupation? [employer] [id number] Information not available 12/16/2022 What is your exercise level? Moderate [id number] Information not available 12/16/2022 Mental Status Question Answer Note LastModified by Organizat ion Details LastModified Time Do you feel stressed (tense, restless, nervous, or anxious, or unable to sleep at night)? [id number] Information not available 12/16/2022 Family History Relationship Description Onset Age of this Age Resolved Age Notes LastModified by Organization Details LastModified Time Father No current problems or disability [id number] Not available 12/16/2022 08:43:45 Mother No current problems or disability [id number] Not available 12/16/2022 08:43:45 Medical History Condition Response ANXIETY DISORDER N Gynecological History Statement/Question Response Date of Last Pap 03/20/2019 Date of Last Pap Smear 03/20/2019 Current Control Method None Age at Menarche 14 Date of LMP 06/24/2021 Breast Problems no Obstetrics History GPAL:G 1 P 0 0 0 0 Immunizations Vaccine Type Date Status Note Provider Nam e and Address Organization Details Recorded Time COVID-19, mRNA, LNP-S, PF, 30 mcg/0.3 mL dose 10/07/2021 completed Not Available [facility] 3 08:51:19 COVID-19, mRNA, LNP-S, PF, 30 mcg/0.3 mL dose 02/07/2021 completed Not Available [facility] 3 08:51:19 COVID-19, mRNA, LNP-S, PF, 30 mcg/0.3 mL dose 01/16/2021 completed Not Available [facility] 3 08:51:19 Influenza, split virus, quadrivalent, PF 10/07/2022 completed Not Available [facility] 3 08:51:19 Past Encounters Encounter ID Performer Location Encounter Start Date Encounter Closed Date Diagnosis/Indication Diagnosis SNOMED-CT Code Diagnosis ICD10 Code Diagnosis IMO Codes Diagnosis Note [id number] [facility] _ATHENA_M IGRATION_ DEFAULT_1 _ , 07/02/2021 00:00:00 07/02/2021 20:37:33 [id number] [facility] _ATHENA_M IGRATION_ DEFAULT_1 _1 , 08/18/2021 00:00:00 08/18/2021 17:10:30 [id number] [facility] _ATHENA_M IGRATION_ DEFAULT_1 _1 , 08/25/2021 00:00:00 08/25/2021 14:53:43 [id number] [facility] _ATHENA_M IGRATION_ DEFAULT_1 _1 , 09/15/2021 00:00:00 09/15/2021 16:32:35 [id number] [facility] _ATHENA_M IGRATION_ DEFAULT_1 _1 , 10/14/2021 00:00:00 10/14/2021 22:39:35 [id number] Tariq zapata MD [facility] Internal Med [address] [place] [address] 10/07/2022 00:00:00 10/07/2022 17:11:44 [id number] Tariq zapata MD [facility] Internal Med [address] [place] [address] 10/27/2023 17:31:51 10/27/2023 18:22:33 Screening - NAD [id number] Z13.9 PAP: Sees Dr Susanna Perry, will be on OCs Get yearly flu shot, get tdap if not doneCan do COVID 19 vaccine RTC in one year, get labs, ER if worse, she verbalized her understand ing of the above Vitamin D deficiency 347 05468 E55.9 Serum rafael min B12 below reference range 509806422 R79.89 Hyperlipidemia 48732024 E78.5 Not on any medsGet labs Liver enzy mes level above reference range 393494344 R74.01 Get labs Adult heal th examination 195068202 Z00.00 [id number] [address] [facility] [address] [place] [address] 12/29/2023 15:22:29 12/29/2023 15:49:56 Upper respiratory infection 84794021 J06.9 Get on augmentin 875mg po bd for 7 days and zyrtec as neededSmal l mobile tender LN noted on the L posterior cervical area, likely reactiveNo tify if not better, ER if worse, she verbalized her understand ing of the above [id number] Tariq zapata MD [facility] Frandy dunlap [address] [facility] [address] [place] [address] 10/30/2024 17:34:50 10/30/2024 19:05:36 Screening - NAD [id number] Z13.9 PAP: Sees Dr Susanna Perry, Get yearly flu shot, get tdap if not doneCan do COVID 19 vaccine RTC in one year, get labs, ER if worse, she verbalized her understand ing of the above Vitamin D deficiency 347 46237 E55.9 Serum rafael min B12 below reference range 199808672 R79.89 Hyperlipidemia 16496627 E78.5 Not on any medsGet labs Liver enzy mes level above reference range 702140714 R74.01 Get labs and US liver Adult heal th examination 901363140 Z00.00 Health Concerns Section Related Observation LastModified by Organization Detai ls LastModified Time None Recorded Concern Status LastModified by Organization Details LastModified Time None Recorded Advance Directives Directive N: Payers Insurance Date Sequence Insurance Name Policy Number Policy Ray Covered Member ID Ray Member ID Guarantor Name 10/28/2024 1 [facility] [id number] Darlene Najera [id number] Darlene Najera Notes Date Note Type Note Provider Name and Address Organization Details Recorded Time 10/27/2023 text/html OV 10/27/2023:Here to establish care and for her yearly wellness visit Past Hx:HLDElevated liver enzymes Reviewed social family and surgical history Is doing very well, wants to get labs Tariq Iyer MD [address] [facility], [facility] [address], [place], [address], [facility] [employer] 10/27/2023 18:19:34 12/29/2023 text/html OV 10/27/2023:Here to establish care and for her yearly wellness visit Past Hx:HLDElevated liver enzymes Reviewed social family and surgical history Is doing very well, wants to get labs OV 12/29/2023: ACV:L sided sore throat and tender LN, since about a week, sore throat is now better, she still has the tender LN and is wanting to check this out, no fevers or chills, no N/V or diarrhea, no chest pain or SOB, no wheezing, no exposure to COVID 19 as per her history Tariq Iyer MD [address], [place], [address], [employer] 12/29/2023 16:11:57 10/30/2024 text/html OV 10/27/2023:Here to establish care and for her yearly wellness visit Past Hx:HLDElevated liver enzymes Reviewed social family and surgical history Is doing very well, wants to get labs OV 12/29/2023: ACV:L sided sore throat and tender LN, since about a week, sore throat is now better, she still has the tender LN and is wanting to check this out, no fevers or chills, no N/V or diarrhea, no chest pain or SOB, no wheezing, no exposure to COVID 19 as per her history OV 10/30/2024: Here for her f/u apt, she is doing very well, would like to get labs Tariq Iyer MD [address], [place], [address], [employer] 10/30/2024 19:05:03 OBGyn Episode No OBEpisode recorded.
--- NOTE | 2025-08-23 17:16 | S_PTH ---
PATIENT: Darlene Najera LOC: ANHOB2 U#:[id number] AGE/SX: 35/F ROOM: 287 RE08/23/[address]: Susanna Perry MD : 1990 BED: 00 DIS: 08/24/2025 SPEC #: [id number] RECD: 08/24/25 07:18 STATUS: HOWARD REStaci #: [id number] CHUY: 08/23/25 17:[address]: Susanna Perry DEPT: [facility] Surgical RECD BY: Blanca Adkins ENTERED: 08/24/25 07:18 SP TYPE: Surgical OTHR DR: Tariq IyerMD Tissues: A - Placenta Procedures: Hematoxylin and Eosin Stain Gross and Microscopic Level 5
--- NOTE | 2025-08-23 17:34 | PM.OBPRVD ---
OB - Vaginal Delivery Note Procedure Delivery date: 08/23/25 Events: Intrauterine Growth Restriction (IUGR) and Other (gestational thromobocytopenia) Induction method: Per Misoprostol Protocol Delivery augmentation: Pitocin Delivery monitor: External FHT and External Uterine Route of delivery: Episiotomy description: None Laceration Description: Perineal - 1st Degree Delivery repair: vicryl Specimen: Yes (placenta) Quantitative Blood Loss (ml): 250 Anesthesia type: Epidural Disposition: Floor Complications: No immediate complications Baby Date of : 08/23/25 Time of : 17:11 Gestational Age by Date: 39 Infant gender: Male presentation: vertex Placenta delivery description: Expressed Cord Vessel Description: 3 Vessels, Nuchal Cord, Loose and Reduced score one minute: 8 score five minutes: 9 Narrative: Darlene progressed to complete dilation with strong desire to push. She pushed for 3 contractions with good maternal effort and delivered the head over intact perineum. Nuchal cord was noted but loose and easily reduced. She easily delivered the 's shoulders and body without complication. Meconium stained fluid was then noted at delivery. was immediately placed skin to skin and had spontaneous cry. Delayed cord clamping was performed. The umbilical cord was then doubly clamped and cut by dad. A segment of the cord was collected for cord gases. The remaining cord blood was collected for typing. With Pitocin running and gentle downward traction on the cord, the placenta delivered without complication. Bimanual massage was performed and good uterine tone with minimal bleeding was noted. She was examined and a small first-degree perineal laceration was identified. The laceration was repaired using 2-0 Vicryl in the normal fashion and good reapproximation with no bleeding was noted. Bimanual massage was once again performed and good uterine tone with minimal bleeding was noted. Sponge, lap, instrument, and needle counts were correct at the end of the procedure. Baby boy was taken over to the warmer for further assessment of his grunting and the steward/stewardess bath was called to the room.
[2025-08-23] MEDS: OXYTOCIN 30 UNITS/NS 500 ML 30 UNITS/500 ML BAG 125 UNITS IV CONT (17:44)
[2025-08-24 01:10] VITALS: BP 90/55; PULSE 57; RESP 16; TEMP 36.8; O2SAT 98
[2025-08-24 04:39] LABS: Hematocrit 35.4 % (37.0-47.0); Hemoglobin 12.3 g/dL (12.0-15.0); Mean Corpuscular HGB Conc 34.7 g/dl (32-36); Mean Corpuscular Hemoglobin 31.8 pg (26-34); Mean Corpuscular Volume 91.5 fl (80-100); Platelet Count Result 112 k/mm3 (150-375); Red Blood Count 3.87 M/mm3 (4.2-5.4); White Blood Count 12.7 K/mm3 (4.5-10.0)
[2025-08-24 07:55] VITALS: BP 96/67; PULSE 55; RESP 16; TEMP 37.1; O2SAT 99
[2025-08-24] MEDS: MULTIVIT/MIN/PREN/FOL AC/IRON TABLET 1 TAB PO (08:00)
--- NOTE | 2025-08-24 08:04 | P.PNOB_ITS ---
OB - PN: Subj Subjective Date/time seen: 08/24/25 08:04 Narrative: PPD#1 Darlene reports doing well today. 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 Her pain is controlled. She is tolerating regular diet, voiding, passing gas, and ambulating without issues. She is breast feeding. She would like her son circumcised. OB - PN: Obj Data Labs 08/24/25 04:23 Labs: Laboratory Results - last 24 hr 08/24/25 04:23 WBC 12.7 H RBC 3.87 L Hgb 12.3 Hct 35.4 L MCV 91.5 MCH 31.8 MCHC 34.7 RDW 12.7 Plt Count 112 L MPV 12.6 H OB - PN A/P Assessment and Plan (1) Normal vaginal delivery of second : Code(s): O80 - Encounter for full-term uncomplicated delivery Status: Acute Plan day: 1 Plan: routine care and discharge home Comments: - PO pain meds - Regular diet - Ambulation and hydration encouraged - Continue putting baby to breast q2-3hr - Circ to be performed today at noon - Discharge home this PM after 24hrs - Pelvic rest; take meds as prescribed - ER return precautions: fever, n/v/abd pain, bleeding, HTN Time Spent With Patient Time: Total time spent is greater than 50% in coordination of care (as documented) at patient's floor/unit and/or counseling patient: Review of Systems 2 Constitutional: Constitutional: Denies chills, Denies fever(s) and Denies headache(s) Eyes: Eyes: Denies change in vision ENT: Denies dizziness and Denies headache(s) Cardiovascular: Cardiovascular: Denies chest pain, Denies palpitations and Denies dyspnea Respiratory: Respiratory: Denies cough and Denies dyspnea Gastrointestinal: Gastrointestinal: Denies nausea and Denies vomiting Neurologic: Denies dizziness and Denies headache(s) Endocrine: Endocrine: Denies palpitations Exam 2 Const: General: cooperative, comfortable and no acute distress O rientation/consciousness: patient oriented x3 Resp: Effort & Inspection: normal respiratory effort Auscultation: clear to auscultation bilaterally Cardio: Rate: regular rate GI: Inspection: non-distended GI Palp: No abdominal tenderness and Yes Soft to palpation Auscultation: normal bowel sounds : Other: fundus firm Skin: General skin exam: normal color Neuro: General: patient oriented x3 Extrem: General: normal to inspection Psych: Appearance: grossly normal Affect: normal affect Attitude: c ooperative
[2025-08-24 12:12] VITALS: BP 99/62; PULSE 55; RESP 16; TEMP 37.2; O2SAT 97
--- NOTE | 2025-08-24 13:42 | P.DS_ITS ---
DS: Admitting Diagnosis Discharge Date 08/24/25 Admitting Diagnosis IUGR gestational thrombocytopenia DS: Discharge Diagnosis Discharge Diagnosis (1) Normal vaginal delivery of second : Code(s): O80 - Encounter for full-term uncomplicated delivery Status: Acute OB - DS: Summary OB Procedures : NST and Ultrasound OB Procedures Intrapartum: Spontaneous Vag Delivery OB Procedures: : None Peripartum Data Delivery Method: Natural Vaginal Laceration Description: Perineal - 1st Degree Episiotomy description: None complications: none 1: Gender: Male Disposition of : home Status at Discharge Functional status at discharge: independent ambulation Overall status at discharge: patient is back to baseline Time Spent with Patient Time attestation: Total time spent providing and/or coordinating discharge services: Time spent: Less than 30 minutes Exam Const: General: cooperative, healthy appearing, comfortable and no acute distress Orientation/consciousness: patient oriented x3 Resp: Effort & Inspection: normal respiratory effort Auscultation: clear to auscultation bilaterally Cardio: Rate: regular rate GI: Inspection: non-distended GI Palp: No abdominal tenderness and Yes Soft to palpation Auscultation: normal bowel sounds : Other: fundus firm Skin: General skin exam: normal color Neuro: General: patient oriented x3 Extrem: General: normal to inspection Psych: Appearance: grossly normal Affect: normal affect Attitude: cooperative DS: Data Data Completed and Pending Pending studies at discharge: Pending at discharge 08/23/25 17:16 Surgical [PTH] Routine Labs on day of discharge: Labs from last 24 hours 08/24/25 04:23 WBC 12.7 H RBC 3.87 L Hgb 12.3 Hct 35.4 L MCV 91.5 MCH 31.8 MCHC 34.7 RDW 12.7 Plt Count 112 L MPV 12.6 H Discharge Plan Discharge Attending physician on discharge: Susanna Perry Discharging Clinician: Susanna Perry Anticipated Discharge Date/Time: 08/24/25 18:00 Patient Disposition: Home Activity: may shower and pelvic rest Diet: regular Patient Instructions: Antibiotic Form Patient Language: Bots[place] Stand Alone Forms: General Discharge Information Follow-up/Referrals: Susanna Perry MD [Physician, TYPE ROLLING MACHINE OPERATOR] - 4 Weeks Discharge Medications: New acetaminophen 325 mg Tablet 650 mg PO Q6H PRN (Reason: Mild Pain (1-3) Or Headache) Qty: 60 0RF docusate sodium 100 mg Capsule 100 mg PO BID PRN (Reason: Constipation) Qty: 90 0RF ibuprofen 600 mg Tablet 600 mg PO Q6H PRN (Reason: Cramping) Qty: 40 0RF Continued magnesium 200 mg tablet 100 mg PO DAILY DHA 200 mg capsule 200 mg PO HS hydrocortisone [Anusol-HC] 2.5 % cream with perineal applicator 1 applic RECTAL DAILY PRN (Reason: hemorrhoids) Qty: 30 1RF Date of admission: 08/23/25 05:05 Primary Care Provider: Jaylon,Tariq Admitting Provider: Susanna Perry Attending physician on admission: Susanna Perry Condition: Stable
--- NOTE | 2025-08-24 14:29 | WPDANLDPN2 ---
Anes-Prog Note L&D Date/Time: 08/24/25 14:29 Comfortable throughout: labor and delivery Neuraxial method: epidural Epidural/Spinal procedure site: clean & non-tender Neuro status: Neuro function grossly intact. Cardiovascular status: normal Respiratory status: normal Airway patency: baseline Mental status: baseline Post-Op hydration status: normal Vital Signs: Last Vital Signs Temp 99 F 08/24/25 12:12 Pulse 55 L 08/24/25 12:12 Resp 16 08/24/25 12:12 BP 99/62 L 08/24/25 12:12 Pulse Ox 97 08/24/25 12:12 O2 Del Method Room Air 08/24/25 08:00 Pain score (VAS): 0/10 I/O: Intake & Output 08/23/25 08/24/25 08/24/25 23:59 07:59 15:59 Intake Total 500 Output Total 700 Balance -200 Post-procedural complaints: none Patient feedback: Patient satisfied with anesthetic care.
[2025-08-24 16:00] VITALS: BP 97/59; PULSE 53; RESP 16; TEMP 36.4; O2SAT 99
--- NOTE | 2025-08-24 17:04 | PC.NURSE ---
1104 Introductions were made, then consulted with patient to assess needs related to . Per mother she had just fed baby at the breast and is going to now take a shower, she will call out with the next feeding to have latch assessed, CLC wrote her name on the communication board and will check back in with mother later this afternoon. Mother voiced understanding of information and will call if there is a request for assistance. Reported to the Primary RN. 6412 Consulted with patient to assess needs related to . Discussed with mother her successes, concerns and any questions she has. We reviewed working with the infant, supporting breast, protecting her nipples with an optimal deep latch, she is using a nipple shield that she had brought from home (she used a shield with her 1st baby, he would not latch so she pumped for 11 months), good positioning, and good hand washing. Encouraged understanding the benefits of skin to skin, responding to feeding cues, frequencies of feeding 8-12 times in 24 hours (approximately 2-3 hours), duration of feedings, milk production, intake/output feeding sheet and signs of adequate intake encouraging swallowing at the breast. Reviewed positioning and alignment, supporting breast, off-centered (asymmetrical latch) and leading with the chin with big, open, wide gape. latched optimally to the [right] breast in [football] position with the nipple shield. Education given to the mother of how to visualize the suckling (with good rocking jaw motion) swallows (dropping of the lower jaw) and how to listen for drinking at the breast (the ka sound), milk seen in nipple shield. The infant was [able] to maintain latch without discomfort to mother. Nipple care reviewed with optimal latch, good positioning and using clean hands when touching her breast. Nipple shield instructions reviewed, good handwashing, cleaning the nipple shield and the appropriate way to apply and use as a tool. Discussed with mom the nipple shield precautions, possible complications associated with the risks and benefits. Reviewed practicing with a nipple shield, then without and how to protect the milk supply and production. Mom and baby guide referred to as a resource for outpatient services, community resources and when to call a provider. Mom voiced understanding of the importance of hand expression, nipple stimulation and initiating a pumping schedule since the has continued to nurse with the shield. Resources used to facilitate learning were used from the [visual handouts/ tool/mom and baby guide]. Mother voiced understanding of the education shared, to call for assistance if the does not latch or if there is discomfort with . Reported to the Primary RN. 1700 Mother is feeding appropriately for growth of and understands stimulating to eat if needed. Infant has had appropriate feedings in the last 24 hours meets the outcomes for weight, output, blood sugar and jaundice at this time. Reinforced understanding of milk production, transition of milk, signs of adequate intake, transition of stool, prevention/relief of engorgement, plugged ducts, mastitis, responsive watching for feeding cues, the different methods of stimulating to breastfeed 1-3 hours after the start of the last feeding, community resources, and when to call a provider using the resource of the feeding sheet along with the mom and baby guide. Mother voiced understanding of the information shared, is confident to continue effectively her at home with the nipple shield and she will then use her breast pump after using the shield, when to call for assistance, denies any additional assistance or education at this time. Reported to the Primary RN.
[2025-08-24] MEDS: INFLUENZA VACCINE 45 MCG/0.5 ML SYRINGE IM (17:34)
[2025-08-27 10:31] VITALS: BP 100/60; PULSE 70; RESP 18; TEMP 36.7; O2SAT 98
== END 2025-08-24 18:30 | disposition home or self-care (01) | DRG 806 ==
LOC: ANHLDR 05:09 → ANHOB2 20:01
PROVIDERS: Admitting Provider Obstetrics & Gynecology; PCP Internal Medicine; Visit Provider Obstetrics & Gynecology
DX: O36.5930 Maternal care for other known or suspected poor fetal growth, third trimester, not applicable or unspecified (principal); O99.12 Other diseases of the blood and blood-forming organs and certain disorders involving the immune mechanism complicating childbirth; Z37.0 Single live birth; O70.0 First degree perineal laceration during delivery; D69.6 Thrombocytopenia, unspecified; O69.81X0 Labor and delivery complicated by cord around neck, without compression, not applicable or unspecified; Z23 Encounter for immunization; Z3A.39 39 weeks gestation of pregnancy
CPT/HCPCS: 36415; 85025; 85027; 85055; 86593; 86850; 86900; 86901; 88307; 90471; 90656; A9270; G0008; J0290; J2405; J2590; J2795; J7120